=== PATIENT | male | born 1935 | race Hispanic/Latino ===

== ENCOUNTER 2017-08-11 15:58 | Inpatient (IN) | payer MEDICARE ==
--- NOTE | 2017-08-11 16:51 | ED PDOC ---
Arrival/HPI - General Chief Complaint: Trauma Time Seen by Provider: 08/11/17 16:13 Historian: Spouse, Family (Daughter) EM Caveat: Dementia - History of Present Illness Time/Duration: 1 week Symptom Onset: Gradual Symptom Course: Worsening Severity Level: Moderate Activities at Onset: Rest Associated Symptoms (Text): 08/11/17 16:48 and daughter report a gradual decline in condition. Patient is more confused than usual. He is having difficulty ambulating. It started some time last summer and has become worse over the last week. He had an MRI of the brain in April which was unrevealing. Patient is confused and unable to give an accurate history. He does have a diagnosis of dementia. There has been no cough congestion or URI. No fever. No vomiting or diarrhea. He did roll out of bed last week and suffered an abrasion on his left shoulder. reports he has maintained a good appetite. Past Medical History - Infectious Disease Hx of Infectious Diseases: None - Neurological Hx Dementia: Yes - Endocrine/Metabolic Hx Diabetes Mellitus Type 2: Yes - Psychiatric Hx Substance Use: No - Anesthesia Hx Anesthesia: No Family/Social History - Physician Review Nursing Documentation Reviewed: Yes Family/Social History: Unknown Family HX Smoking Status: Never Smoked Hx Alcohol Use: No Hx Substance Use: No Allergies/Home Meds Allergies/Adverse Reactions: Allergies No Known Allergies Allergy (Verified 08/11/17 16:31) Home Medications: Home Meds Medication Instructions Recorded Confirmed MetFORMIN [glucOPHAGE] 1,000 mg PO BID 08/11/17 08/11/17 Review of Systems - Review of Systems Systems not reviewed;Unavailable: Dementia Physical Exam Vital Signs Temp Pulse Resp BP Pulse Ox 08/11/17 18:00 98.7 F 85 16 109/80 96 08/11/17 16:33 97.8 F 88 18 107/82 96 Temperature: Afebrile Blood Pressure: Normal Pulse: Regular Respiratory Rate: Normal Appearance: Positive for: Well-Appearing, Non-Toxic, Comfortable Pain Distress: None Mental Status: Positive for: other (Awake alert and oriented 1 only) Finger Stick Blood Glucose: 191 - Systems Exam Head: Present: Atraumatic, Normocephalic Pupils: Present: PERRL Extroacular Muscles: Present: EOMI Conjunctiva: Present: Normal Ears: Present: NORMAL TM, Normal Canal. No: Erythema Mouth: Present: Moist Mucous Membranes Pharnyx: No: ERYTHEMA, EXUDATE, TONSILS ENLARGED Neck: Present: Normal Range of Motion Respiratory/Chest: Present: Clear to Auscultation, Good Air Exchange, Decreased Breath Sounds. No: Respiratory Distress, Accessory Muscle Use Cardiovascular: Present: Regular Rate and Rhythm, Normal S1, S2. No: Murmurs Abdomen: Present: Normal Bowel Sounds. No: Tenderness, Distention, Peritoneal Signs, Rebound, Guarding Upper Extremity: Present: Other (Superficial lateral left shoulder abrasion which is nontender with full range of motion). No: Normal Inspection, Cyanosis , Edema Lower Extremity: Present: Normal Inspection. No: Edema Neurological: Present: GCS=15, CN II-XII Intact, Speech Normal, Motor Func Grossly Intact Skin: Present: Warm, Dry, Normal Color. No: Rashes Psychiatric: Present: Alert Medical Decision Making ED Course and Treatment: 08/11/17 20:37 EKG shows normal sinus rhythm rate approximately [address] or T-wave changes 08/11/2017 20:[address] IMPRESSION: Limited examination of the head, secondary to motion artifact is without intracranial hemorrhage, or suspicious mass effect. Dictator: Angelina Costello MD 08/11/17 21:11 Discussed with 's [employer] TE[employer]ER. Admitted to a [facility] bed.. 08/11/17 21:35 Discussed in detail with the patient's son. Plan will be placement. - Lab Interpretations Lab Results: 08/11/17 17:30 08/11/17 17:30 Lab Results 08/11/17 18:33: Urine Color Light yellow, Urine Appearance Sl cloudy, Urine pH 6.0, Ur Specific [place] >= 1.030, Urine Protein 30 H, Urine Glucose (UA) >=1000 , Urine Ketones Trace H, Urine Blood Moderate H, Urine Nitrate Negative, Urine Bilirubin Negative, Urine Urobilinogen 0.2, Ur Leukocyte Esterase Negative, Urine RBC 2 - 5, Urine WBC 0 - 2, Ur Epithelial Cells 1 - 3, Urine Bacteria Small, Urine Other Mucus 08/11/17 17:30: Sodium 134, Potassium 4.0, Chloride 101, Carbon Dioxide 26, Anion Gap 11, BUN 28 H, Creatinine 0.7 L, Est GFR ( Amer) > 60, Est GFR ( Non-Af Amer) > 60, Random Glucose 194 H, Calcium 9.1, Phosphorus 3.1, Magnesium 2.0, Total Bilirubin 1.0, AST 103 H, ALT 75 H, Alkaline Phosphatase 68, Lactate Dehydrogenase 982 H, Total Creatine Kinase 2150 H, CK-MB (CK-2) 13.2 H, CK-MB ( CK-2) % 0.6 L, Troponin I 0.03, Total Protein 7.0, Albumin 3.9, Globulin 3.1, Albumin/Globulin Ratio 1.3 08/11/17 17:30: PT 12.0, INR 1.10 H, APTT 22.7 L 08/11/17 17:30: WBC 11.3 H, RBC 3.66, Hgb 11.4 L, Hct 33.4 L, MCV 91.3, MCH 31.1 , MCHC 34.1, RDW 13.3, Plt Count 258, MPV 10.8, Gran % 82.1 H, Lymph % (Auto) 9.2 L, Jenkins % (Auto) 7.7 H, Eos % (Auto) 0.8 L, Baso % (Auto) 0.2, Gran # 9.25 H , Lymph # 1.0 L, Jenkins # 0.9 H, Eos # 0.1, Baso # 0.02 - RAD Interpretation Radiology Orders: 08/11/17 16:46 HEAD W/O CONTRAST [CT] Stat 08/11/17 16:47 CHEST PORTABLE [RAD] Stat - Medication Orders Current Medication Orders: Sodium Chloride (Sodium Chloride 0.9%) 500 mls @ 500 mls/hr IV ONCE ONE Stop: 08/11/17 22:19 Disposition/Present on Arrival - Present on Arrival Any Indicators Present on Arrival: No History of DVT/PE: No History of Uncontrolled Diabetes: No Urinary Catheter: No History of Decub. Ulcer: No History Surgical Site Infection Following: None - Disposition Have Diagnosis and Disposition been Completed?: Yes Diagnosis: Dehydration, Hyperglycemia, Dementia, Weakness, Unable to ambulate Disposition: HOSPITALIZED Disposition Time: 21:20 Patient Plan: Admission Patient Problems: Current Active Problems Problem Status Onset Dehydration Acute Dementia Acute Hyperglycemia Acute Unable to ambulate Acute Weakness Acute Condition: FAIR
[2017-08-11 18:10] LABS: TROPONIN I 0.03 ng/mL
[2017-08-11 18:20] LABS: INR 1.1 (0.93-1.08); PARTIAL THROMBOPLASTIN TIME 22.7 Seconds (25.1-36.5)
[2017-08-11 18:23] LABS: BASO # 0.02 K/mm3 (0.0-2.0); BASO % 0.2 % (0.0-3.0); EOS # 0.1 (0.0-0.7); EOS % 0.8 % (1.5-5.0); GRAN # 9.25 (1.4-6.5); GRAN % 82.1 % (50.0-68.0); HEMATOCRIT 33.4 % (42.0-52.0); LYMPH % 9.2 % (22.0-35.0); MEAN CELL VOLUME 91.3 fl (80.0-105.0); MEAN CORPUSCULAR HEMOGLOBIN 31.1 pg (25.0-35.0); MEAN CORPUSCULAR HGB CONC 34.1 g/dl (31.0-37.0); MEAN PLATELET VOLUME 10.8 fl (7.0-11.0); MONO # 0.9 (0.1-0.6); MONO % 7.7 % (1.0-6.0); RED CELL DISTRIBUTION WIDTH 13.3 % (11.5-14.5); WHITE BLOOD COUNT 11.3 10^3/ul (4.5-11.0)
[2017-08-11 19:00] LABS: URINE BILIRUBIN NEGATIVE (NEGATIVE); URINE BLOOD MODERATE (NEGATIVE); URINE GLUCOSE (UA) >=1000 mg/dL (NEGATIVE); URINE KETONE TRACE mg/dL (NEGATIVE); URINE LEUKOCYTE ESTERASE NEGATIVE Leu/uL (NEGATIVE); URINE PROTEIN 30 mg/dL (<30 mg/dL); URINE UROBILINOGEN 0.2 E.U./dL (<1 E.U./dL)
[2017-08-11 19:02] LABS: URINE APPEARANCE SL CLOUDY (CLEAR); URINE COLOR LIGHT YELLOW (YELLOW)
[2017-08-11 19:17] LABS: URINE BACTERIA SMALL (NEG); URINE WBC 0 - 2 /hpf (0-6)
[2017-08-11 19:18] LABS: ALB/GLOB RATIO 1.3 (1.1-1.8); ALKALINE PHOSPHATASE 68 U/L (38-126); ALT/SGPT 75 U/L (7-56); AST/SGOT 103 U/L (17-59); BLOOD UREA NITROGEN 28 mg/dL (7-21); CALCIUM 9.1 mg/dL (8.4-10.5); CARBON DIOXIDE 26 mmol/L (21-33); CHLORIDE 101 mmol/L (98-107); GFR AFRICAN-AMERICAN > 60; GLUCOSE,RANDOM 194 mg/dL (70-110); PHOSPHOROUS 3.1 mg/dL (2.5-4.5); SODIUM 134 mmol/L (132-148)
--- NOTE | 2017-08-11 20:16 | CT ---
EXAM: CT Head Without Intravenous Contrast CLINICAL HISTORY: 82 years old, male; Signs and symptoms; Altered mental status/memory loss; Age related cognitive decline; Additional info: AMS TECHNIQUE: Axial computed tomography images of the head/brain without intravenous contrast. All CT scans at this facility use one or more dose reduction techniques, viz.: automated exposure control; ma/kV adjustment per patient size (including targeted exams where dose is matched to indication; i.e. head); or iterative reconstruction technique. COMPARISON: CT - HEAD W/O CONTRAST 2016-07-12 10:06 Examination is markedly limited by motion artifact. FINDINGS: Brain: No significant intracranial hemorrhage. Significant periventricular white matter disease. Ventricles: Age-appropriate ventriculomegaly. Bones: No acute displaced fracture. Sinuses: Unremarkable as visualized. No acute sinusitis. Mastoid air cells: Unremarkable as visualized. No mastoid effusion. IMPRESSION: Limited examination of the head, secondary to motion artifact is without intracranial hemorrhage, or suspicious mass effect.
[2017-08-11] MEDS ORDERED: Sodium Chloride 0.9% 500 ML IV ONE (21:20)
--- NOTE | 2017-08-12 09:08 | RAD ---
HISTORY: ams COMPARISON: No prior. FINDINGS: LUNGS: No active pulmonary disease. PLEURA: No significant pleural effusion identified, no pneumothorax apparent. CARDIOVASCULAR: Normal. OSSEOUS STRUCTURES: No significant abnormalities. VISUALIZED UPPER ABDOMEN: Normal. OTHER FINDINGS: None. IMPRESSION: No active disease.
[2017-08-12] MEDS: Sodium Chloride 0.9% 1,000 ML IV SCH ×2 (10:25→20:57)
[2017-08-12 10:30] LABS: ALB/GLOB RATIO 1.2 (1.1-1.8); ALKALINE PHOSPHATASE 63 U/L (38-126); ALT/SGPT 86 U/L (7-56); AST/SGOT 80 U/L (17-59); BILIRUBIN,TOTAL 0.7 mg/dL (0.2-1.3); BLOOD UREA NITROGEN 28 mg/dL (7-21); CALCIUM 9.2 mg/dL (8.4-10.5); CARBON DIOXIDE 30 mmol/L (21-33); CHLORIDE 102 mmol/L (98-107); GFR AFRICAN-AMERICAN > 60; GLUCOSE,RANDOM 224 mg/dL (70-110); POTASSIUM 3.6 mmol/L (3.6-5.0); SODIUM 138 mmol/L (132-148); TOTAL PROTEIN 6.9 g/dL (5.8-8.3)
[2017-08-12] MEDS: Insulin Reg-LOW-Coverage SC SCH ×3 (12:30→21:54)
--- NOTE | 2017-08-12 20:05 | CARD ---
APPROVED REPORT EKG Measurement Heart [id number] <Conclusion> Normal sinus rhythm Left axis deviation Abnormal ECG
--- NOTE | 2017-08-12 20:38 | CP.PCM.CON ---
<Savannah Cox - Last Filed: 08/12/17 23:12> History of Present Illness - History of Present Illness History of Present Illness: PGY-2 Neuology consult note for Dr. Dejesus's service 82 yo male with PMH of diabetes, dementia presented to ED for declining general condition, neurology consulted for change in mental status and weakness. Patient is confused and not oriented unable to obtain history from him, majority of HPI taken from ED note. and daughter report a gradual decline in condition and increase in confusion. Patient is reported to have difficulty ambulating as well. It started some time last summer and has become worse over the last week. MRI of the brain done in January showed severe encephalomalacia. He does have a history of dementia. It was reported that patient rolled out of bed last week and suffered an abrasion on his left shoulder. Unable to obtain review of systems. PMH: diabetes, dementia PSH: none social history: never smoked, denies alcohol use, illicit drug use allergy: NKDA home meds: metformin Review of Systems - Review of Systems Systems not reviewed;Unavailable: Dementia Past Patient History - Infectious Disease Hx of Infectious Diseases: None - Past Social History Smoking Status: Never Smoked - NEUROLOGICAL Hx Dementia: Yes - ENDOCRINE/METABOLIC Hx Diabetes Mellitus Type 2: Yes - MUSCULOSKELETAL/RHEUMATOLOGICAL Hx Falls: Yes - PSYCHIATRIC Hx Substance Use: No - ANESTHESIA Hx Anesthesia: No Meds Allergies/Adverse Reactions: Allergies Allergy/AdvReac Type Severity Reaction Status Date / Time No Known Allergies Allergy Verified 08/11/17 16:31 - Medications Medications: Current Medications Sodium Chloride (Sodium Chloride 0.9%) 1,000 mls @ 100 mls/hr IV .Q10H [facility] Last Admin: 08/12/17 10:25 Dose: 100 mls/hr Insulin Human Regular (Humulin R Low) 0 units SC ACHS TODD PRN Reason: Protocol Last Admin: 08/12/17 16:43 Dose: Not Given Physical Exam - Constitutional Appears: No Acute Distress - Head Exam Head Exam: ATRAUMATIC, NORMAL INSPECTION, NORMOCEPHALIC - Eye Exam Eye Exam: EOMI, Normal appearance - ENT Exam ENT Exam: Mucous Membranes Dry - Respiratory Exam Respiratory Exam: NORMAL BREATHING PATTERN. absent: Respiratory Distress - Cardiovascular Exam Cardiovascular Exam: REGULAR RHYTHM - Neurological Exam Neurological exam: Alert, CN II-XII Intact Additional comments: patient oriented to self only - Skin Skin Exam: Dry, Intact, Normal Color, Warm Results - Vital Signs Recent Vital Signs: Last Vital Signs Temp 98.3 F 08/12/17 16:00 Pulse 104 H 08/12/17 16:00 Resp 20 08/12/17 16:00 BP 104/67 08/12/17 16:00 Pulse Ox 94 L 08/12/17 16:00 - Labs Result Diagrams: 08/11/17 17:30 08/12/17 10:07 Labs: Laboratory Results - last 24 hr 08/12/17 10:07 Sodium 138 Potassium 3.6 Chloride 102 Carbon Dioxide 30 Anion Gap 9 L BUN 28 H Creatinine 0.9 Est GFR ( Amer) > 60 Est GFR (Non-Af Amer) > 60 Random Glucose 224 H Calcium 9.2 Total Bilirubin 0.7 AST 80 H D ALT 86 H Alkaline Phosphatase 63 Total Creatine Kinase 942 H CK-MB (CK-2) 6.1 H CK-MB (CK-2) % 0.6 L Total Protein 6.9 Albumin 3.8 Globulin 3.1 Albumin/Globulin Ratio 1.2 Assessment & Plan - Assessment and Plan (Free Text) Assessment: 82 yo male with PMH of diabetes, dementia presented to ED for declining general condition,change in mental status and weakness most likely due to dementia. 1. dementia 2. diabetes - CT head was normal - will start namenda 5 BID - dementia work up outpatient - delirium precautions - frequent orientation - avoid hypotension - previous hgba1c is 6.3, controlled blood sugars - avoid sedative medications - PT/OT - subacute rehab Thank you forteh consult, please reconsult if needed Case reviewed and discussed with attending, Dr. Dejesus <Deni Dejesus - Last Filed: 08/13/17 10:38> Meds - Medications Medications: Current Medications Sodium Chloride (Sodium Chloride 0.9%) 1,000 mls @ 100 mls/hr IV .Q10H TODD Last Admin: 08/12/17 20:57 Dose: 100 mls/hr Insulin Human Regular (Humulin R Low) 0 units SC ACHS TODD PRN Reason: Protocol Last Admin: 08/12/17 21:54 Dose: Not Given Lisinopril (Zestril) 2.5 mg PO DAILY TODD Memantine (Namenda) 5 mg PO BID TODD Results - Vital Signs Recent Vital Signs: Last Vital Signs Temp 98 F 08/13/17 07:00 Pulse 77 08/13/17 07:00 Resp 18 08/13/17 07:00 BP 139/74 08/13/17 07:00 Pulse Ox 97 08/13/17 07:00 - Labs Result Diagrams: 08/13/17 06:50 08/13/17 06:50 Labs: Laboratory Results - last 24 hr 08/12/17 08/12/17 08/12/17 07:09 10:07 11:28 WBC RBC Hgb Hct MCV MCH MCHC RDW Plt Count MPV Sodium Potassium Chloride Carbon Dioxide Anion Gap BUN Creatinine Est GFR ( Amer) Est GFR (Non-Af Amer) POC Glucose (mg/dL) 187 H 425 H* Random Glucose Calcium Total Creatine Kinase CK-MB (CK-2) 6.1 H CK-MB (CK-2) % 0.6 L NT-Pro-B Natriuret Pep 08/12/17 08/12/17 08/13/17 16:32 21:29 06:50 WBC RBC Hgb Hct MCV MCH MCHC RDW Plt Count MPV Sodium 138 Potassium 3.7 Chloride 105 Carbon Dioxide 28 Anion Gap 8 L BUN 22 H Creatinine 0.8 Est GFR ( Amer) > 60 Est GFR (Non-Af Amer) > 60 POC Glucose (mg/dL) 88 213 H Random Glucose 148 H Calcium 8.5 Total Creatine Kinase 955 H CK-MB (CK-2) 6.0 H CK-MB (CK-2) % 0.6 L NT-Pro-B Natriuret Pep 588 H 08/13/17 06:50 WBC 8.2 D RBC 3.50 Hgb 10.6 L Hct 31.8 L MCV 90.9 MCH 30.3 MCHC 33.3 RDW 13.1 Plt Count 225 MPV 9.7 Sodium Potassium Chloride Carbon Dioxide Anion Gap BUN Creatinine Est GFR ( Amer) Est GFR (Non-Af Amer) POC Glucose (mg/dL) Random Glucose Calcium Total Creatine Kinase CK-MB (CK-2) CK-MB (CK-2) % NT-Pro-B Natriuret Pep Attending/Attestation - Attestation I have personally seen and examined this patient.: Yes I have fully participated in the care of the patient.: Yes I have reviewed all pertinent clinical information: Yes
[2017-08-12] MEDS ORDERED: DiphenhydrAMINE 50 mg/ml Inj IVP STA (23:16)
--- NOTE | 2017-08-12 23:18 | CP.PCM.PN ---
Subjective - Date & Time of Evaluation Date of Evaluation: 08/12/17 Time of Evaluation: 23:17 - Subjective Subjective: Patient was seen at bedside. Is agitated. Pulling out IV tubing. Medical record was reviewed. This 82 year old male was admitted with confusion. Has PMH of dementia, hyperglycemia, failure to thrive. Objective - Vital Signs/Intake and Output Vital Signs (last 24 hours): Temp Pulse Resp BP Pulse Ox 98.3 F 104 H 20 104/67 94 L 08/12/17 16:00 08/12/17 16:00 08/12/17 16:00 08/12/17 16:00 08/12/17 16:00 Intake and Output: 08/12/17 08/13/17 18:59 06:59 Intake Total 960 240 Balance 960 240 - Medications Medications: Current Medications Diphenhydramine HCl (Benadryl) 25 mg IVP STAT STA Stop: 08/12/17 23:17 Sodium Chloride (Sodium Chloride 0.9%) 1,000 mls @ 100 mls/hr IV .Q10H TODD Last Admin: 08/12/17 20:57 Dose: 100 mls/hr Insulin Human Regular (Humulin R Low) 0 units SC ACHS TODD PRN Reason: Protocol Last Admin: 08/12/17 21:54 Dose: Not Given Memantine (Namenda) 5 mg PO BID TODD - Labs Labs: 08/12/17 10:07 PT 12.0 SECONDS (9.4-12.5) 08/11/17 17:30 INR 1.10 (0.93-1.08) H 08/11/17 17:30 APTT 22.7 Seconds (25.1-36.5) L 08/11/17 17:30 - Constitutional Appears: Well, No Acute Distress - Head Exam Head Exam: ATRAUMATIC, NORMAL INSPECTION, NORMOCEPHALIC - Eye Exam Eye Exam: Normal appearance - ENT Exam ENT Exam: Normal External Ear Exam - Cardiovascular Exam Cardiovascular Exam: absent: JVD - GI/Abdominal Exam GI & Abdominal Exam: absent: Distended - Rectal Exam Rectal Exam: Deferred - Exam Additional comments: Deferred. - Extremities Exam Extremities Exam: Normal Inspection - Back Exam Back Exam: NORMAL INSPECTION - Neurological Exam Neurological Exam: Altered - Psychiatric Exam Psychiatric exam: Agitated - Skin Skin Exam: Normal Color Assessment and Plan - Assessment and Plan (Free Text) Assessment: Agitation. Dehydration. Hyperglycemia. Weakness. Dementia. Plan: Benadryl 25 mg IV x 1. Continue present management.
--- NOTE | 2017-08-13 03:42 | HP ---
HISTORY OF PRESENT ILLNESS: An 82-year-old white male with history syndrome, weakness, failure to thrive, recent change in mental status, confusion, and disorientation. The patient had fallen out of bed, was unable to get up and the family was unable to get the patient up. He was made comfortable on the floor for a while until the younger family member could get there. The patient eventually was taken to the hospital, admitted and was found laboratory data to have slightly elevated white count of 11.3, hemoglobin 11.4. Also was found to have sugar of 191 and elevated liver enzymes of 103 and 75 and also elevated LDH of 982 and then he had CPK of 2150, which is reduced to 942. Following test, the patient was also found to have a moderate hematuria and glycosuria. The patient in the ER had a CT of the head, which found no significant intracranial bleeding or white matter disease. He was admitted, hydrated to protect his kidneys from rhabdomyolysis. Neurologic consultation done. MRI ordered. PHYSICAL EXAMINATION: GENERAL: Shows a well-developed, well-nourished white male with no lateral focalizing deficits. The patient is oriented only to person, not to place or time or myself. VITAL SIGNS: Stable. CHEST: Clear to auscultation. HEART: Reveals sinus rhythm. No S3 or murmurs. ABDOMEN: Benign. EXTREMITIES: No cyanosis, clubbing or edema. NEUROLOGIC: Except for disorientation is intact. Oscar Sarah MD
[2017-08-13 07:26] LABS: HEMATOCRIT 31.8 % (42.0-52.0); MEAN CELL VOLUME 90.9 fl (80.0-105.0); MEAN CORPUSCULAR HEMOGLOBIN 30.3 pg (25.0-35.0); MEAN CORPUSCULAR HGB CONC 33.3 g/dl (31.0-37.0); MEAN PLATELET VOLUME 9.7 fl (7.0-11.0); RED CELL DISTRIBUTION WIDTH 13.1 % (11.5-14.5); WHITE BLOOD COUNT 8.2 10^3/ul (4.5-11.0)
[2017-08-13 08:14] LABS: BLOOD UREA NITROGEN 22 mg/dL (7-21); CALCIUM 8.5 mg/dL (8.4-10.5); CARBON DIOXIDE 28 mmol/L (21-33); CHLORIDE 105 mmol/L (98-107); GFR AFRICAN-AMERICAN > 60; GLUCOSE,RANDOM 148 mg/dL (70-110); POTASSIUM 3.7 mmol/L (3.6-5.0); SODIUM 138 mmol/L (132-148)
[2017-08-13] MEDS: Insulin Reg-LOW-Coverage SC SCH ×4 (10:58→21:24)
--- NOTE | 2017-08-13 12:48 | PN ---
SUBJECTIVE: An 82-year-old white male, found fallen out of bed, was unable to get out of the bed, was found to have rhabdomyolysis. CPKs are trending down. The patient is demented. He, however, is more awake and alert today, but not oriented to place or time. His latest laboratory data showed hemoglobin drop from 11.4 to 10.6. His sugars are also better controlled. His CPK total is 955 today. His BNP is 588. B12 is pending. BUN and creatinine have remained stable. PLAN: To continue hydration, follow H and H, physical therapy to avoid falls and possible stent in TCU to control his heart failure and his tendency to fall and to monitor his kidney function. Oscar Sarah MD
--- NOTE | 2017-08-13 20:29 | CARD ---
APPROVED REPORT EXAM: Two-dimensional and M-mode echocardiogram with Doppler and color Doppler. INDICATION Non STEMI 2D DIMENSIONS Left Atrium (2D)3.7 (1.6-4.0cm)IVSd1.0 (0.7-1.1cm) LVDd4.4 (3.9-5.9cm)PWd1.2 (0.7-1.1cm) LVDs2.9 (2.5-4.0cm)FS (%) 34.5 % LVEF (%)50.0 (>50%) M-Mode DIMENSIONS Aortic Root3.40 (2.2-3.7cm)Aortic Cusp Exc.1.80 (1.5-2.0cm) Aortic Valve AoV Peak Bzvqmkap28.9cm/Zan Peak GR.3mmHg Mitral Valve MV E Nztvmhkp46.0cm/sMV A Apjsspxe35.3cm/sE/A ratio0.6 TDI E/Lateral E'0.0E/Medial E'0.0 Tricuspid Valve TR Peak [id number]/sRAP [id number] Peak Gr.10mmHg [id number] LEFT VENTRICLE The left ventricle is normal size. There is normal left ventricular wall thickness. Left ventricle systolic function is borderline. There is normal LV segmental wall motion. Transmitral Doppler flow pattern is Grade I-abnormal relaxation pattern. RIGHT VENTRICLE The right ventricle is normal size. There is normal right ventricular wall thickness. The right ventricular systolic function is normal. ATRIA The left atrium size is normal. The right atrium size is normal. AORTIC VALVE The aortic valve is mildly thickened. There is mild aortic regurgitation. MITRAL VALVE The mitral valve is mildly thickened. Mitral regurgitation is mild. GREAT VESSELS The aortic root is normal in size. The IVC is normal in size and collapses >50% with inspiration. PERICARDIAL EFFUSION There is a trace loculated anterior pericardial effusion. <Conclusion> The left ventricle is normal size. There is normal left ventricular wall thickness. Left ventricle systolic function is borderline. Transmitral Doppler flow pattern is Grade I-abnormal relaxation pattern. There is mild aortic regurgitation. Mitral regurgitation is mild.
[2017-08-13] MEDS: Sodium Chloride 0.9% 1,000 ML IV SCH (21:06)
[2017-08-14] MEDS: Insulin Reg-LOW-Coverage SC SCH ×3 (08:09→16:40)
[2017-08-14 09:08] VITALS: O2SAT 96
--- NOTE | 2017-08-14 12:30 | PN ---
DATE: SUBJECTIVE: An 82-year-old white male, found to have syncopal episode and was found to have rhabdomyolysis, improving steadily. The patient has been hydrated. PHYSICAL EXAMINATION: VITAL SIGNS: Stable. IMPRESSION AND PLAN: The patient has dementia. He is doing physical therapy and occupational therapy. His CPK total were as high as 2100, now down to less than 500. The patient is tolerating his diet well. He is demented and he is disoriented. He has been evaluated for possible short-term subacute rehab. Examination is unchanged. Oscar Sarah MD
[2017-08-14 17:36] VITALS: BP 128/72; PULSE 79; RESP 20; TEMP 97.6
== END 2017-08-14 21:24 | DRG 558 ==
LOC: ED 15:58 → ERH 21:18 → 5RSO 23:29
PROVIDERS: ADMIT Internal Medicine; ATTEND Internal Medicine
DX: M62.82 Rhabdomyolysis (principal); E11.65 Type 2 diabetes mellitus with hyperglycemia; G93.89 Other specified disorders of brain; W06.XXXA Fall from bed, initial encounter; F03.90 Unspecified dementia, unspecified severity, without behavioral disturbance, psychotic disturbance, mood disturbance, and anxiety; E86.0 Dehydration; R62.7 Adult failure to thrive; S40.212A Abrasion of left shoulder, initial encounter; Y92.003 Bedroom of unspecified non-institutional (private) residence as the place of occurrence of the external cause